=== PATIENT | male | born 1950 | race Asian ===

== ENCOUNTER → 2024-12-08 | Day surgery (SDC) | payer MEDICARE, OTHER ==
[~2024-12-08] VITALS: Ht 170.2 cm; Wt 70.3 kg
[~2024-12-08] MED LIST: ACETAMINOPHEN 325MG TABLET PO PRN; ASPI-1497 PO; FENTANYL CITRATE/PF 50MCG/ML 2ML VIAL ONE; HEPARIN 1000 UNITS/ML 10ML ONE; IODIXANOL 320MG/ML 100 ML BOTTLE IV ONE; LIDOCAINE HCL 1% 20ML VIAL ONE; MIDAZOLAM HCL 2 MG/2 ML VIAL ONE; ONDANSETRON HCL 4MG/2ML INJ IV PRN; ROSU40TA PO
== END | disposition home or self-care (01) ==
LOC: CCL 09:08
PROVIDERS: ATTEND Specialist
DX: I25.10 Atherosclerotic heart disease of native coronary artery without angina pectoris (principal); R94.39 Abnormal result of other cardiovascular function study; I10 Essential (primary) hypertension; I77.9 Disorder of arteries and arterioles, unspecified; E78.5 Hyperlipidemia, unspecified; Z79.82 Long term (current) use of aspirin; Z79.899 Other long term (current) drug therapy; Z82.49 Family history of ischemic heart disease and other diseases of the circulatory system; Z98.890 Other specified postprocedural states
CPT/HCPCS: 93458; C1893; C1725; C1769 ×2; J3010; Q9967; J1644 ×2; J2003; J2250; C1887; 99152; A4606; G0500